=== PATIENT | female | born 1955 | race Caucasian/White ===

== ENCOUNTER 2018-01-04 14:36 | Inpatient (IN) | payer MEDICAID ==
[~2018-01-04] VITALS: Ht 157.5 cm; Wt 82.6 kg
[2018-01-04] MEDS ORDERED: SODIUM CHLORIDE 0.9% 1,000 ML IV ONE ×2 (14:56→15:06)
[2018-01-04] MEDS ORDERED: ONDANSETRON HCL 4MG/2ML INJ IV STA (14:56)
[2018-01-04] MEDS ORDERED: PANTOPRAZOLE SODIUM 40 MG/VIAL IV ONE (15:15)
[2018-01-04 15:59] LABS: BG BASE EXCESS -5.4 mmol/L (-2.0-2.0); BG CARBOXYHEMOGLOBIN 0.3 % (0.5-1.5); BG DEOXYHEMOGLOBIN 3.3 % (0.0-5.0); BG FRACTION INSPIRED OXYGEN 21; BG METHEMOGLOBIN 0.2 % (0.0-1.5); BG OXYGEN SATURATION 96.7 % (92.0-98.5); BG OXYHEMOGLOBIN 96.2 % (94.0-97.0); BG PCO2 28.1 mmHg (35.0-45.0); BG PH 7.424 (7.350-7.450); BG PO2 100.6 mmHg (75.0-100.0); BG SAMPLE SITE RIGHT RADIAL; BG TOTAL HEMOGLOBIN 9.8 g/dL (12.0-18.0); BG VENT MODE ROOM AIR
[2018-01-04 16:20] LABS: BASOPHILS % 0.3 % (0.0-2.0); EOSINOPHILS % 0.1 % (0.0-5.0); HEMATOCRIT. 28.7 % (36.0-48.0); HEMOGLOBIN. 9.6 g/dL (12.0-16.0); LYMPHOCYTES % 12.5 % (20.0-50.0); MEAN CORPUSCULAR HEMOGLOBIN 27.4 pg (28.0-32.0); MEAN CORPUSCULAR VOLUME 81.8 fL (81.0-99.0); MEAN PLATELET VOLUME 9.9 fl (7.4-10.4); MONOCYTES % 4.7 % (2.0-8.0); NEUTROPHILS % 82.4 % (40.0-76.0); PLATELET 82 x1000/uL (130-400); RED BLOOD CELL COUNT 3.51 mill/uL (4.2-5.4); RED CELL DISTRIBUTION WIDTH 16.7 % (11.6-14.6)
[2018-01-04 16:24] LABS: INR 1.1; PARTIAL THROMBOPLASTIN TIME 23.6 sec (23.4-31.0); PROTHROMBIN TIME 11.1 sec (9.1-11.1)
[2018-01-04 16:27] LABS: CHLORIDE 114 mEq/L (98-107)
[2018-01-04 16:33] LABS: TOTAL IRON BINDING CAPACITY 365 ug/dL (250-450)
[2018-01-04] MEDS ORDERED: DOCUSATE SODIUM 100MG CAPSULE PO PRN (17:00)
[2018-01-04] MEDS ORDERED: DIPHENHYDRAMINE 50MG/ML VIAL IV PRN (17:00)
[2018-01-04] MEDS ORDERED: ONDANSETRON HCL 4MG/2ML INJ IV PRN (17:00)
[2018-01-04] MEDS ORDERED: ACETAMINOPHEN 325MG TABLET PO PRN (17:00)
[2018-01-04] MEDS ORDERED: GUAIFENESIN 200MG/10ML SUGAR FREE UDC PO PRN (17:00)
[2018-01-04] MEDS ORDERED: LORAZEPAM 2MG/ML CPJ IV PRN (17:00)
[2018-01-04] MEDS ORDERED: MAGNESIUM/ALUMINUM HYDROXIDE/SIMETHICONE 30ML UDC PO PRN (17:00)
[2018-01-04] MEDS ORDERED: MORPHINE SULFATE 4 MG/ML CPJ (NOT FOR IM USE) IV PRN (17:00)
[2018-01-04] MEDS ORDERED: CLONIDINE 0.1MG TABLET PO PRN (17:00)
[2018-01-04] MEDS ORDERED: IPRATROPIUM/ALBUTEROL 0.5-3(2.5)MG/3ML NEB INH PRN (17:00)
[2018-01-04 20:26] VITALS: BP 125/75
[2018-01-04 21:00] VITALS: BP 114/74
[2018-01-04] MEDS: SODIUM CHLORIDE 0.45% 1,000 ML IV SCH (22:03)
[2018-01-04] MEDS ORDERED: TOPI25CA2 PO (22:21)
[2018-01-04] MEDS ORDERED: CALC-3 PO (22:21)
[2018-01-04] MEDS ORDERED: HYDR-4001 PO (22:22)
[2018-01-05] VITALS (13 sets, daily range): BP systolic 99–134; BP diastolic 59–76
[2018-01-05 06:21] LABS: BASOPHILS % 0.5 % (0.0-2.0); EOSINOPHILS % 1.3 % (0.0-5.0); HEMATOCRIT. 21.7 % (36.0-48.0); HEMOGLOBIN. 7.3 g/dL (12.0-16.0); LYMPHOCYTES % 28.1 % (20.0-50.0); MEAN CORPUSCULAR HEMOGLOBIN 27.5 pg (28.0-32.0); MEAN CORPUSCULAR VOLUME 81.9 fL (81.0-99.0); MEAN PLATELET VOLUME 9.2 fl (7.4-10.4); MONOCYTES % 6.8 % (2.0-8.0); NEUTROPHILS % 63.3 % (40.0-76.0); PLATELET 59 x1000/uL (130-400); RED BLOOD CELL COUNT 2.65 mill/uL (4.2-5.4); RED CELL DISTRIBUTION WIDTH 16.9 % (11.6-14.6)
[2018-01-05 07:06] LABS: CHLORIDE 116 mEq/L (98-107)
[2018-01-05] MEDS: SODIUM CHLORIDE 0.45% 1,000 ML IV SCH (11:10)
[2018-01-05] MEDS: HYDROCODONE/ACETAMINOPHEN 5/325MG TABLET PO PRN ×2 (11:23→22:12)
[2018-01-05] MEDS: PANTOPRAZOLE SODIUM 40 MG/VIAL IV SCH ×2 (11:27→21:29)
[2018-01-05] MEDS ORDERED: SIMETHICONE 40 MG/0.6 ML 30ML ONE ×2 (13:18→16:04)
[2018-01-05] MEDS ORDERED: BACTERIOSTATIC SODIUM CHLORIDE 0.9% 30ML VIAL IJ ONE (13:18)
[2018-01-05] MEDS ORDERED: FENTANYL CITRATE/PF 50MCG/ML 2ML VIAL ONE (16:05)
[2018-01-05] MEDS ORDERED: MIDAZOLAM HCL 5 MG/5 ML VIAL ONE (16:05)
[2018-01-05] MEDS ORDERED: MIDAZOLAM HCL 2 MG/2 ML VIAL IV PRN (16:06)
[2018-01-05] MEDS ORDERED: FENTANYL CITRATE/PF 50MCG/ML 2ML VIAL IV PRN (16:07)
[2018-01-05 19:42] LABS: HEMATOCRIT 26.9 % (36.0-48.0); HEMOGLOBIN 9.1 g/dL (12.0-16.0)
[2018-01-05 19:47] LABS: INR 1.1; PROTHROMBIN TIME 10.7 sec (9.1-11.1)
[2018-01-06] VITALS: BP 97/63
[2018-01-06 01:38] VITALS: BP 100/65
[2018-01-06 04:00] VITALS: BP_SYST 99
[2018-01-06] MEDS: SODIUM CHLORIDE 0.45% 1,000 ML IV SCH (04:03)
[2018-01-06] MEDS: PANTOPRAZOLE SODIUM 40 MG/VIAL IV SCH (08:20)
[2018-01-06 10:12] VITALS: BP 102/64
== END 2018-01-06 14:41 | disposition home or self-care (01) | DRG 242 ==
LOC: ER 14:36 → 6WST 16:39 → EDBEDREQ 16:53 → EDBEDREQTM 16:53 → EDBEDREQSVC 16:53 → ENRESERV 17:15
PROVIDERS: ADMIT Internal Medicine; ATTEND Internal Medicine
PROC: 30233N1 Transfusion of Nonautologous Red Blood Cells into Peripheral Vein, Percutaneous Approach (ICD-10-PCS; 2018-01-05)
PROC: 0DB78ZX Excision of Stomach, Pylorus, Via Natural or Artificial Opening Endoscopic, Diagnostic (ICD-10-PCS; principal; 2018-01-05 16:00)
DX: K22.6 Gastro-esophageal laceration-hemorrhage syndrome (principal); D69.6 Thrombocytopenia, unspecified; E87.0 Hyperosmolality and hypernatremia; K29.01 Acute gastritis with bleeding; E88.09 Other disorders of plasma-protein metabolism, not elsewhere classified; K22.10 Ulcer of esophagus without bleeding; K22.2 Esophageal obstruction; K44.9 Diaphragmatic hernia without obstruction or gangrene; D64.9 Anemia, unspecified; R74.0 Nonspecific elevation of levels of transaminase and lactic acid dehydrogenase [LDH]; K29.80 Duodenitis without bleeding; K21.9 Gastro-esophageal reflux disease without esophagitis; Z98.51 Tubal ligation status; Z85.89 Personal history of malignant neoplasm of other organs and systems
CPT/HCPCS: 36415; 36600; 71045; 80053; 82375; 82805; 83540; 83550; 83690; 84484; 85014; 85018; 85025; 85044; 85049; 85384; 85610; 85730; 86850; 86900; 86920; 88305; 88312; 88313; 93005; 99291; C9113; J2250; J2405; J3010; J3490; J7030; J7050; P9016